=== PATIENT | female | born 1940 | race Caucasian/White ===

== ENCOUNTER 2021-11-04 16:10 | Emergency (ER) | payer MEDICARE, BC ==
[~2021-11-04] VITALS: Ht 162.6 cm; Wt 50.5 kg
[2021-11-04 16:30] VITALS: BP 167/67
[2021-11-04] MEDS ORDERED: IOHEXOL 12MG/ML oral solution 500 ML BOTTLE PO ONE (16:40)
[2021-11-04] MEDS ORDERED: normal saline 1000ML IV soln IVB ONE (16:40)
[2021-11-04 16:53] LABS: BASOPHILS # (AUTO) 0.1 X10'3 (0-0.2); BASOPHILS % (AUTO) 1.5 % (0-1); EOSINOPHILS # (AUTO) 0.4 X10'3 (0-0.9); EOSINOPHILS % (AUTO) 5.9 % (0-6); HEMATOCRIT 39.8 % (35.0-45.0); HEMOGLOBIN 13.4 g/dl (12.0-16.0); LYMPHOCYTES # (AUTO) 1.9 X10'3 (1.1-4.8); LYMPHOCYTES % (AUTO) 27.2 % (21-51); MEAN CORPUSCULAR HEMOGLOBIN 28.9 PG (27.0-31.0); MEAN CORPUSCULAR HGB CONC 33.6 g/dL (33.0-36.5); MEAN PLATELET VOLUME 7.6 FL (7.4-10.4); MONOCYTES # (AUTO) 0.5 X10'3 (0-0.9); MONOCYTES % (AUTO) 7.8 % (2-12); NEUTROPHILS % (AUTO) 57.6 % (42-75); PLATELET COUNT 228 X10'3 (140-440); RED BLOOD COUNT 4.63 X10'6 (4.20-5.60); RED CELL DISTRIBUTION WIDTH 14.4 % (11.5-14.5); WHITE BLOOD COUNT 6.9 X10'3 (4.5-11.0)
[2021-11-04 17:04] LABS: CLARITY,URINE CLEAR (Clear); COLOR,URINE YELLOW (Yellow); GLUCOSE, URINE NEGATIVE (Neg); KETONES,URINE NEGATIVE (Neg); LEUKOCYTE ESTERASE ,URINE NEGATIVE (Neg); NITRITES, URINE NEGATIVE (Neg); OCCULT BLOOD,URINE NEGATIVE (Neg); PROTEIN,URINE NEGATIVE (Neg); UROBILINOGEN,URINE 0.2 E.U/dL (0.2-1.0)
[2021-11-04 17:05] LABS: UA COLLECTION TYPE CLN CATCH MIDSTREAM
[2021-11-04 17:07] LABS: ALANINE AMINOTRANSFERASE 31 U/L (12-78); ALBUMIN 4.2 G/DL (3.4-5.0); ALBUMIN/GLOBULIN RATIO 1.3 (1.1-1.5); ALKALINE PHOSPHATASE 55 IU/L (46-116); ANION GAP 8 (8-16); ASPARTATE AMINO TRANSFERASE 19 U/L (10-37); BILIRUBIN,TOTAL 0.7 MG/DL (0.1-1.0); BLOOD UREA NITROGEN 19 MG/DL (7-18); BUN/CREATININE RATIO 22.6 (6.6-38.0); CALCIUM 9.3 MG/DL (8.5-10.1); CHLORIDE 106 MMOL/L (99-107); CREATININE 0.84 MG/DL (0.40-0.90); GLUCOSE 99 MG/DL (70-104); POTASSIUM 4.1 MMOL/L (3.5-5.1); SODIUM 143 MMOL/L (135-145); TOTAL CARBON DIOXIDE 28.8 MMOL/L (24-32); TOTAL PROTEIN 7.4 G/DL (6.4-8.2); eGFR 65 ML/MIN
[2021-11-04] MEDS ORDERED: polyethylene glycol 3350 17gm powd pack PO STA (18:20)
[2021-11-04] MEDS ORDERED: lactulose 20gm/30ml cup PO ONE (18:20)
[2021-11-04] MEDS ORDERED: bisacodyl 10mg suppository rectal RC STA (18:20)
[2021-11-04] MEDS ORDERED: magnesium citrate 296ml oral solution PO ONE (19:25)
[2021-11-04] MEDS ORDERED: BISA10SU62 RC (19:48)
[2021-11-04] MEDS ORDERED: HC A30CR2 RC (19:48)
== END 2021-11-04 20:05 | disposition home or self-care (01) ==
LOC: ER 16:11
DX: K59.00 Constipation, unspecified (principal); K64.9 Unspecified hemorrhoids
CPT/HCPCS: 36415; 74176; 80053; 81003; 85025; 96360; 99284; J7030

== ENCOUNTER 2022-05-18 07:25 | Emergency (ER) | payer MEDICARE, BC ==
[~2022-05-18] VITALS: Ht 170.2 cm; Wt 50.0 kg
[~2022-05-18 07:25] MED LIST: BISA10SU62 RC; HC A30CR2 RC
[2022-05-18 08:07] LABS: BASOPHILS % (AUTO) 0.6 % (0-1); EOSINOPHILS # (AUTO) 0.1 X10'3 (0-0.9); EOSINOPHILS % (AUTO) 2.6 % (0-6); HEMATOCRIT 36.9 % (35.0-45.0); HEMOGLOBIN 12.2 g/dl (12.0-16.0); LYMPHOCYTES % (AUTO) 17.8 % (21-51); MEAN CORPUSCULAR HEMOGLOBIN 29.1 PG (27.0-31.0); MEAN CORPUSCULAR VOLUME 88.1 FL (78-98); MEAN PLATELET VOLUME 7.9 FL (7.4-10.4); MONOCYTES # (AUTO) 0.4 X10'3 (0-0.9); MONOCYTES % (AUTO) 8.3 % (2-12); NEUTROPHILS # (AUTO) 3.8 X10'3 (1.8-7.7); NEUTROPHILS % (AUTO) 70.7 % (42-75); PLATELET COUNT 210 X10'3 (140-440); RED BLOOD COUNT 4.19 X10'6 (4.20-5.60); WHITE BLOOD COUNT 5.4 X10'3 (4.5-11.0)
[2022-05-18 08:17] LABS: ALANINE AMINOTRANSFERASE 37 U/L (12-78); ALBUMIN 3.8 G/DL (3.4-5.0); ALBUMIN/GLOBULIN RATIO 1.3 (1.1-1.5); ALKALINE PHOSPHATASE 58 IU/L (46-116); ANION GAP 6 (8-16); ASPARTATE AMINO TRANSFERASE 27 U/L (10-37); BILIRUBIN,TOTAL 0.5 MG/DL (0.1-1.0); BLOOD UREA NITROGEN 17 MG/DL (7-18); BUN/CREATININE RATIO 24.6 (10.0-20.0); CALCIUM 9.2 MG/DL (8.5-10.1); CHLORIDE 106 MMOL/L (99-107); CREATININE 0.69 MG/DL (0.40-0.90); GLUCOSE 79 MG/DL (70-104); POTASSIUM 3.9 MMOL/L (3.5-5.1); SODIUM 141 MMOL/L (135-145); TOTAL CARBON DIOXIDE 29.3 MMOL/L (24-32); TOTAL PROTEIN 6.8 G/DL (6.4-8.2); eGFR 81 ML/MIN
[2022-05-18 08:28] LABS: MAGNESIUM 1.9 MG/DL (1.5-2.4)
--- NOTE | 2022-05-18 10:00 | NUR ---
attempted to call poison control but no answer, will try again
--- NOTE | 2022-05-18 10:39 | NUR ---
still unable to get through to poison control, will make charge nurse aware.
[2022-05-18 12:08] VITALS: BP 159/78
== END 2022-05-18 12:11 | disposition home or self-care (01) ==
LOC: ER 07:25
DX: R41.0 Disorientation, unspecified (principal); T46.0X5A Adverse effect of cardiac-stimulant glycosides and drugs of similar action, initial encounter; T38.1X5A Adverse effect of thyroid hormones and substitutes, initial encounter; Y92.89 Other specified places as the place of occurrence of the external cause
CPT/HCPCS: 36415; 70450; 80053; 80162; 83735; 84443; 85025; 85610; 93005; 99285

== ENCOUNTER 2022-06-04 13:47 | Emergency (ER) | payer MEDICARE, BC ==
[~2022-06-04] VITALS: Ht 170.2 cm; Wt 59.1 kg
[2022-06-04 14:13] VITALS: BP 147/57
--- NOTE | 2022-06-04 15:46 | NUR ---
PATIENT REFUSED EKG. PT STATED "I AM NOT LETTING YOU DO THIS IF I HAVE TO PAY."
--- NOTE | 2022-06-04 19:29 | NUR ---
ATTEMPT EKG, PT NOT IN LOBBY OR PARKING LOT,
== END 2022-06-04 20:27 | disposition left against medical advice (07) ==
LOC: ER 13:48
DX: T50.905A Adverse effect of unspecified drugs, medicaments and biological substances, initial encounter (principal); Z53.21 Procedure and treatment not carried out due to patient leaving prior to being seen by health care provider
CPT/HCPCS: 99281

== ENCOUNTER 2022-07-17 10:48 | Emergency (ER) | payer MEDICARE, BC ==
[~2022-07-17] VITALS: Ht 167.6 cm; Wt 45.5 kg
[2022-07-17 11:00] VITALS: BP 130/73
[2022-07-17] MEDS ORDERED: LORazepam 1 MG tablet PO ONE (11:45)
--- NOTE | 2022-07-17 12:05 | NUR ---
PT ELOPED, DID NOT RECEIVE ORDERED ATIVAN. PROVIDER NOTIFIED
== END 2022-07-17 12:03 | disposition left against medical advice (07) ==
LOC: ER 10:48
DX: F41.9 Anxiety disorder, unspecified (principal); Z53.21 Procedure and treatment not carried out due to patient leaving prior to being seen by health care provider
CPT/HCPCS: 99281